=== PATIENT | male | born 1965 | race Caucasian/White ===

== ENCOUNTER → 2016-12-14 | Outpatient (CLI) | payer BC ==
[~2016-12-14] MED LIST: ATOR10TA88 PO; DLN100; DLN100 PO; DLN30; LEVE500T13 PO
== END | disposition home or self-care (01) ==
LOC: C.RDSM 13:42
PROVIDERS: ATTEND Family Medicine Sports Medicine
DX: R22.30 Localized swelling, mass and lump, unspecified upper limb (principal)

== ENCOUNTER 2017-06-26 12:24 | Emergency (ER) | payer BC ==
[~2017-06-26] VITALS: Ht 170.2 cm; Wt 80.6 kg
[~2017-06-26 12:24] MED LIST changes: -ATOR10TA88 PO; -LEVE500T13 PO
[2017-06-26 12:27] VITALS: TEMP 36.7; Ht 170.2 cm; Wt 80.6 kg
[2017-06-26] MEDS ORDERED: ATOR10TA88 PO (12:49)
[2017-06-26] MEDS ORDERED: LEVE500T13 PO (12:49)
[2017-06-26] MEDS ORDERED: SODIUM CHLORIDE 0.9% 1000ML 1,000 ML IV STA (13:25)
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
[2017-06-26] MEDS ORDERED: LEVETIRACETAM IV 1,000 MG in DEXTROSE 5% 100ML 100 ML IV ONE (16:00)
[2017-06-26 16:18] VITALS: BP 163/104; PULSE 66; O2SAT 97
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
== END 2017-06-26 16:45 | disposition short-term general hospital (02) ==
LOC: EDBD 12:24 → C.EDB 12:25
DX: S06.361A Traumatic hemorrhage of cerebrum, unspecified, with loss of consciousness of 30 minutes or less, initial encounter (principal); V28.4XXA Motorcycle driver injured in noncollision transport accident in traffic accident, initial encounter; Y92.410 Unspecified street and highway as the place of occurrence of the external cause; E78.00 Pure hypercholesterolemia, unspecified; K21.9 Gastro-esophageal reflux disease without esophagitis; G40.909 Epilepsy, unspecified, not intractable, without status epilepticus; Z79.899 Other long term (current) drug therapy